=== PATIENT | male | born 1995 | race African-American/Black ===

== ENCOUNTER 2018-01-23 14:51 | Emergency (ER) | payer MEDICAID, OTHER ==
[~2018-01-23] VITALS: Ht 170.2 cm; Wt 78.9 kg
[2018-01-23 16:07] VITALS: BP 119/70
[2018-01-23] MEDS ORDERED: ACETAMINOPHEN 500 MG TAB PO ONE (16:15)
== END 2018-01-23 16:43 | disposition home or self-care (01) ==
LOC: ER 14:51
DX: R51 Headache (principal)